=== PATIENT | male | born 1965 | race Caucasian/White ===

== ENCOUNTER → 2023-08-19 15:20 | Outpatient (REF) | payer SELFPAY | LOC: HWRAD 15:20 | PROVIDERS: ATTENDING PHYSICIAN Internal Medicine | DX: E78.00 Pure hypercholesterolemia, unspecified (principal) | CPT/HCPCS: 75571 ==

== ENCOUNTER 2024-04-20 14:21 | Observation (INO) | payer BC, SELFPAY ==
[2024-04-20] VITALS (13 sets, daily range): BP systolic 120–147; BP diastolic 75–103; BMI 27.5; BMI 26.4
--- NOTE | 2024-04-20 11:27 | ED.GENMED ---
History of Present Illness
General
Chief Complaint: Dizziness
Time Seen by Provider: 04/20/24 11:26
History of Present Illness
History of Present Illness:
TIME OF INITIAL ENCOUNTER: 11:30 AM
HPI: The patient awoke just before 6 AM and was able to play Wordl. A few minutes later, the patient had a 'valadez' sensation unlike prior episodes of vertigo. This was associated with paresthesias to the right side of the face. He went to work and
thought he had some trouble with word finding at times and developed paresthesias in the right upper extremity. 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 No nausea, vomiting, or diarrhea. No fevers.
Spoke to PMD and advised to come here.
EXAM:
GENERAL: Well appearing in no distress
HEENT: Moist oral mucosa
CARDIOVASCULAR: No murmurs, normal heart rate, regular rhythm, No chest wall tenderness
PULMONARY: No respiratory distress, breath sounds are clear and equal
ABDOMEN: Soft with no peritoneal signs, no tenderness
NEUROLOGIC: Excellent strength all extremities, no coordination deficits, NIHSS equals 0, GCS 15
PSYCHIATRIC: Appropriate mental status, normal insight and judgement
EXTREMITIES: Nontender, no edema, moves all extremities equally
SKIN: No rash, no lesions
NUMBER AND COMPLEXITY OF PROBLEMS ADDRESSED AT THE ENCOUNTER
� Chronic conditions affecting care: Has had vertigo in the past, asthma, GERD
� Acute Exacerbation and/or Progression of Chronic Illness: This is an acute problem
� Differential Diagnosis includes: TIA/CVA, anxiety, positional vertigo, intracranial mass, dysrhythmia, electrolyte normality
AMOUNT AND/OR COMPLEXITY OF DATA TO BE REVIEWED AND ANALYZED
� I performed an independent evaluation of and my interpretation is:
EKG: Sinus 55, no acute ST abnormality
CT: I personally viewed CT imaging and agree with radiologist interpretation there is no acute abnormality on CT head and CTA of the head neck
X-rays:
Laboratory Studies: CBC and chemistries unremarkable
Other:
� Review of other/old records: The patient had upper endoscopy in May 2022
� Clinical information was obtained by an independent historian: None needed
� Prescriptions/Medications Considered but not given:
� Further testing considered but not performed:
RISK OF COMPLICATIONS AND/OR MORBIDITY OR MORTALITY OF PATIENT MANAGEMENT
� Social determinants of health affecting care: Works as a teacher at [employer]
� Discussion with other providers: Discussed case with Dr. Montenegro at around 12:40 PM�initially recommended patient stay in the hospital for TIA workup. Hospitalist, Dr. Dorman for admission at 1:41 PM
� Escalation of care including admission/observation vs risk of discharge considered: As patient had unilateral paresthesias along with some degree of problems with word finding earlier today, CT and CTA obtained and were both
negative.
ANY OTHER UPDATES:
1 PM: I reassessed patient. The patient feels well and symptoms have nearly resolved. Dr. Montenegro will evaluate in the ED. The patient's NIHSS continues to be 0.
1:20 PM: Patient evaluated by Dr. Montenegro -she recommends he stay in the hospital and patient now agrees to stay
Past History
Past History
ED Past Medical History: GERD
ED Past Surgical History: Orthopedic (Left ACL repair)
Social History
Tobacco: Non-smoker
Personal:
Living: with family
Employment: Employed
Phy Exam
Physical Exam
Physical Exam:
See HPI
Course
Orders/Labs/Results
Orders:
Orders
04/20/24 11:33
CT Head & Neck Angio W/wo IV Urgent
Comment:
Reason For Exam: R paresthesias, word finding prob
CT Head W/o Iv Contrast Urgent
Comment:
Reason For Exam: R paresthesias, resolved aphasia
04/20/24 11:34
Electrocardiogram (*1) Urgent
Reason for Study: TIA/Stroke
EKG- Treatment ONCE
04/20/24 11:40
Complete Blood Count/With Diff Urgent
Comprehensive Metabolic Panel Urgent
Abnormal Lab Results
04/20/24
11:40
RBC 4.63 L 10^6/uL
(4.70-6.10)
MCH 32.6 H pg
(27.0-31.0)
Monocytes % 9.6 H %
(1.7-9.3)
Glucose 100 H mg/dl
(70-99)
04/20/24 11:40
04/20/24 11:40
Vital Signs
Initial and Last Documented VS:
Initial Vital Signs
Temp Pulse Resp BP Pulse Ox
36.5 C 67 18 142/94 100
04/20/24 11:09 04/20/24 11:09 04/20/24 11:09 04/20/24 11:09 04/20/24 11:09
Last Documented Vital Signs
Temp Pulse Resp BP Pulse Ox
36.5 C 67 18 120/75 96
04/20/24 11:09 04/20/24 11:09 04/20/24 11:09 04/20/24 12:00 04/20/24 12:15
*Critical Care Note
Total Time (30-74mins, 75-104mins- exclusive of procedures): Not Applicable
ED Attending Note
-
Portions of this chart may have been created with voice recognition software.� Occasional wrong word or��sound alike� substitutions may have occurred due to the inherent limitations of voice recognition software.
Discharge Plan
Departure
Prescriptions:
No Action
No Current Medications
0
Referrals:
Gege Jacques MD [Family Provider] -
Interventions
Interventions:
*Risk Screen - Suicide Last Done: 04/20/24 11:09
*General Assessment Last Done: 04/20/24 11:22
*Neglect/Abuse Screening Last Done: 04/20/24 11:22
ED- Fall Risk Assessment Last Done: 04/20/24 11:30
*ED COVID-19 Vaccine History Last Done: 04/20/24 11:22
ED- Neurological Assessment Last Done: 04/20/24 11:22
ED Swallowing Screen Last Done: 04/20/24 11:30
Discharge Date and Time
Print Language: YORUBA
[2024-04-20 11:50] LABS: % Basophils 0.8 % (0-2); % Eosinophils 3.5 % (0-6); % Immature Granulocytes 0.2 % (0-0.5); % Lymphocytes 32.1 % (20.5-51.1); % Monocytes 9.6 % (1.7-9.3); % Neutrophils 53.8 % (42.2-75.2); Absolute Basophils 0.1 10^3/uL (0-0.2); Absolute Eosinophils 0.2 10^3/uL (0-0.7); Absolute Monocytes 0.6 10^3/uL (0.1-0.6); Absolute Neutrophils 3.4 10^3/uL (1.4-6.5); Hematocrit 43.4 % (39.0-52.0); Hemoglobin 15.1 g/dL (13.0-18.0); Mean Corp Hgb Conc. 34.8 g/dL (33.0-37.0); Mean Corpuscular Hgb 32.6 pg (27.0-31.0); Mean Corpuscular Volume 93.7 fL (80.0-94.0); Mean Platelet Volume 9.4 fL (7.4-10.4); Nucleated Red Blood Cells % 0 % (-); Platelet Count 232 10^3/uL (130-400); Red Blood Cell Count 4.63 10^6/uL (4.70-6.10); Red Cell Dist. Width 13.2 % (11.5-14.5); White Blood Cell Count 6.2 10^3/uL (4.8-10.8)
[2024-04-20 12:04] LABS: ALT (SGPT) 33 U/L (0-50); AST (SGOT) 34 U/L (17-59); Albumin 4.6 g/dl (3.5-5.0); Alkaline Phosphatase 46 U/L (38-126); Blood Urea Nitrogen 16 mg/dl (9-20); Calcium 9.8 mg/dl (8.4-10.2); Carbon Dioxide 29 mmol/L (22-30); Chloride 101 mmol/L (98-107); Estimated Creatinine Clearance 97 ml/min; Glucose 100 mg/dl (70-99); Potassium 4.6 mmol/L (3.5-5.1); Sodium 139 mmol/L (135-145); Total Bilirubin 0.8 mg/dl (0.2-1.3); Total Protein 7.5 g/dl (6.3-8.2); eGFR > 60.00
--- NOTE | 2024-04-20 13:49 | CON.NEURO ---
Consultation
Order
Date of Consultation: 04/20/24
Requesting Provider: Natasha Dorman MD
Reason for Consult: dizziness
Neurology Consultation Note.
HPI: This is a 58-year-old right-handed man who presented to [facility] on 04/20/2024 for an evaluation of dizziness and sensory symptoms. According to the patient he developed an acute 'gushing 'sensation in the head after he turned
in the bed with associated disequilibrium/ataxia and transient tingling in the right face lasted for about an hour today in the morning. No reports of change in vision, motor deficits, ear pain, tinnitus. He experienced a mild headache on the side
of his head this morning, which is unusual for him as he does not typically get headaches.
Mr. Higginbotham has a history of intermittent dizziness since [id number], with no definitive diagnosis. He has previously consulted a neurologist and explored potential causes such as B12 deficiency and sleep issues. Mr. Higginbotham experienced a mild headache
on the side of his head this morning, which is unusual for him as he does not typically get headaches.
ER VS: 142/94-147/103, 67, afebrile.
EKG:sinus cipriano at 55, QTc Int : 386 ms.
PDMP:none
Labs: gluc 100,
CT head wo contrast
CTA head/neck-no evidence of large vessel occlusion, or arterial dissection.
PMH: asthma, GERD, dyslipidemia, primary congenital glaucoma?
PSH: Lknee arthroscopy,
SH: , works as a typing teacher, non-smoker, social alcohol use.
FH: Father�, had bladder cancer, strokes mother�hypertension.
All: Augmentin, sulfas,
ROS:Constitutional: Negative. Negative for chills, fever and unexpected weight change.
HENT: Negative for ear pain, hearing loss, tinnitus and trouble swallowing.
Eyes: Negative. Negative for photophobia, pain and visual disturbance.
Respiratory: Negative for cough, choking and shortness of breath.
Cardiovascular: Negative for chest pain, palpitations and leg swelling.
Gastrointestinal: Negative for abdominal pain and vomiting.
Endocrine: Negative. Negative for cold intolerance.
Genitourinary: Negative for dysuria, flank pain and urgency.
Musculoskeletal: Negative for back pain, gait problem, neck pain and neck stiffness.
Skin: Negative for rash.
Allergic/Immunologic: Negative. Negative for immunocompromised state.
Neurological: Positive for transient headache and right-sided paresthesias.
Psychiatric/Behavioral: Negative for behavioral problems, confusion and hallucinations.
General: Well developed. In no acute distress.
Cardio: Regular rate and rhythm without murmur. Extremities are without cyanosis or edema.
Neuro:
Mental Status: Alert, oriented to person, place, and date. Normal attention and recall. Good fund of knowledge. Follows complex requests across the midline. Comprehension, naming, and repetition intact. Immediate and delayed recall 3/3.
Cranial Nerves: . Pupils are equally round and reactive to light. EOMs full. Visual chaudhry full to confrontation. No ptosis. No nystagmus. V1-V3 intact to light touch and pinprick bilaterally, symmetric. Face symmetric. Normal hearing AU.
The palate elevated well. SCMs and traps 5/5. Tongue midline. No dysarthria.
Motor: Normal bulk and tone. No pronator or arm drift. Strength 5/5 throughout. No clonus.
Reflexes: 3+ throughout the upper extremities and 3+knees. 2/2 in AJs. Plantar responses flexor bilaterally. Negative Homans bilaterally
Sensory: Normal vibration and JPS.
Coordination: No dysmetria or tremor.
Gait: deferred
Assessment and Plan:
I. TIA
II. Hyperreflexia
III. Elevated blood pressure
-Continue Telemetry monitoring.
-Aspiration precautions.
-Brain MRI wo freddy
-Start ASA 81 mg QD indefinitely.
-Plavix 75 mg QD for 21 days.
-Lipitor 40 mg QHS.
-Please check HbA1C, LDL.
-PT.
-DVT prophylaxis.
I personally reviewed all radiology and labs along with past medical records pertinent to current medical problems. Total time spent in patient care is 60 minutes.
Thank you for allowing us to participate in the care of this patient. We will continue to follow. Please do not hesitate to contact us with any questions or concerns.
Subjective/Objective
Subjective Data
Date of Service: April 20, 2024
Objective Data
Vital Signs
Temp Pulse Resp BP Pulse Ox
36.5 C 67 18 147/103 97
04/20/24 11:09 04/20/24 11:09 04/20/24 11:09 04/20/24 13:30 04/20/24 13:45
Lab Results
04/20/24 11:40
04/20/24 11:40
Sodium 139 mmol/L (135-145) 04/20/24 11:40
Potassium 4.6 mmol/L (3.5-5.1) 04/20/24 11:40
BUN 16 mg/dl (9-20) 04/20/24 11:40
Glucose 100 mg/dl (70-99) H 04/20/24 11:40
Calcium 9.8 mg/dl (8.4-10.2) 04/20/24 11:40
Patient Allergies
amoxicillin [From Augmentin] Allergy (Verified 04/20/24 11:09)
Vomiting
clavulanic acid [From Augmentin] Allergy (Verified 04/20/24 11:09)
Vomiting
sulfabenzamide Allergy (Verified 04/20/24 11:09)
Rash
Medications
-
Home Medications
�Medication �Instructions �Recorded
No Meds [No Current Medications] 08/31/17
Vital Signs and Labs
-
Vital Signs and Labs:
Vital Signs
Temp Pulse Resp BP Pulse Ox
36.7 C 64 16 121/70 97
04/21/24 07:30 04/21/24 07:30 04/21/24 07:30 04/21/24 07:30 04/21/24 07:30
Sodium 139 mmol/L (135-145) 04/20/24 11:40
Potassium 4.6 mmol/L (3.5-5.1) 04/20/24 11:40
BUN 16 mg/dl (9-20) 04/20/24 11:40
Glucose 100 mg/dl (70-99) H 04/20/24 11:40
Calcium 9.8 mg/dl (8.4-10.2) 04/20/24 11:40
LDL Cholesterol, Calc 138 mg/dl 04/20/24 17:18
Medications
-
Medications:
Generic Name Dose Route Start Last Admin
Trade Name Freq PRN Reason Stop Dose Admin
Albuterol 2 puff 04/21/24 08:00 04/21/24 07:55
Albuterol Hfa [90 Mcg/Dose] Inhaler INH Not Given
R DAILY ADARSH
Protocol
Aspirin 81 mg 04/21/24 08:00
Aspirin 81 Mg Chewable Tablet PO 05/19/24 07:59
DAILY ADARSH
Atorvastatin Calcium 80 mg 04/21/24 18:00
Atorvastatin (Lipitor) 80 Mg Tablet PO 05/19/24 17:59
QPM ADARSH
Clopidogrel Bisulfate 75 mg 04/21/24 08:00
Clopidogrel 75 Mg Tablet PO 05/19/24 07:59
DAILY ADARSH
Latanoprost 0 drop 04/20/24 18:00 04/20/24 22:14
Latanoprost 0.005% (Ophthalmic Solution) 2.5 Ml Bottle BOTH EYES 05/18/24 17:59 Not Given
QPM ADARSH
Pantoprazole Sodium 40 mg 04/21/24 08:00
Pantoprazole 40 Mg Delayed Release Tablet PO 05/19/24 07:59
DAILY ADARSH
Sodium Chloride 0 flush 04/20/24 16:00
Sodium Chloride 0.9% (Flush) Syringe IV 05/18/24 15:59
PER PROTOCOL ADARSH
Home Medications
-
Home Medications
albuterol sulfate 90 mcg/actuation aerosol inhaler 2 inh inhalation R DAILY Lung/Breathing Issues 04/20/24
esomeprazole magnesium 20 mg capsule,delayed release (Nexium) 20 mg PO DAILY Gastrointestinal Issue 04/20/24
latanoprost 0.005 % eye drops (Xalatan) 1 drp BOTH EYES QPM Eye Condition 04/20/24
--- NOTE | 2024-04-20 14:09 | HPS.HSE ---
Family Physician
-
Family Physician: Gege Jacques
Chief Complaint
-
dysarthria, headache, parasthesia
History of Present Illness
58-year-old male past medical history of vertigo episodes, GERD, asthma, elevated intraocular pressure, hyperlipidemia, presenting with dizziness. Patient awoke just before 6 AM and was able to play Wordl. Few minutes later he developed a 'valadez'
sensation in his head unlike prior episodes of vertigo. This was associate with paresthesias of the right side of the face and neck. He also had some mild headache on the right side. He went to work and he thought he had trouble with word
finding. He felt like something was off. 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 He denies nausea vomiting or diarrhea. Denies fevers.
He feels back to normal at the current time.
He has had short-lived vertigo episodes in the past thought to be secondary to panic attacks his primary care physician in the past.
He drinks alcohol occasionally. He denies smoking. Denies drugs.
He has a history of elevated blood pressure in his family. His uncle had TIAs.
Medical History
Past Medical History
Past Medical History: Reports Other (vertigo episodes, GERD, asthma, elevated intraocular pressure, hyperlipidemia)
Past Surgical History: Reports None
Social History
Tobacco: Non-smoker
Alcohol: Occasional
Drug: None
Family History
Family History: Not pertinent
Allergies / Home Medications
Allergies reflects when Allergies were last updated in [employer].
Home Medications with original date entered in [employer]
Allergy/Medication List:
Allergies
Allergy/AdvReac Type Severity Reaction Status Date / Time
amoxicillin [From Augmentin] Allergy Vomiting Verified 04/20/24 11:09
clavulanic acid Allergy Vomiting Verified 04/20/24 11:09
[From Augmentin]
sulfabenzamide Allergy Rash Verified 04/20/24 11:09
Home Medications
albuterol sulfate 90 mcg/actuation aerosol inhaler 2 inh inhalation R DAILY 04/20/24
esomeprazole magnesium 20 mg capsule,delayed release (Nexium) 20 mg PO DAILY 04/20/24
latanoprost 0.005 % eye drops (Xalatan) 1 drp BOTH EYES QPM 04/20/24
Review of Systems
-
History Source: Patient
A 12 point ROS was completed and negative except as noted: Yes
Constitutional: Reports No Symptoms
EENT: Reports No Symptoms
Respiratory: Reports No Symptoms
Cardiac: Reports No Symptoms
Abdomen/GI: Reports No Symptoms
: Reports No Symptoms
Musculoskeletal: Reports No Symptoms
Skin: Reports No Symptoms
Neurological: Reports See HPI
Endocrine: Reports No Symptoms
Hematologic/Lymphatic: Reports No Symptoms
Psych: Reports No Symptoms
Physical Exam
Vital Signs
Vital Signs
Temp Pulse Resp BP Pulse Ox
97.7 F 67 18 147/103 97
04/20/24 11:09 04/20/24 11:09 04/20/24 11:09 04/20/24 13:30 04/20/24 13:45
Physical Exam
General: Well Developed, Well Nourished and No Apparent Distress
HEENT: NormoCephalic, Moist mucous membranes and Atraumatic
Respiratory: Clear
Cardiac: S1/S2 and Regular Rhythm; No Murmur or Rub
GI: Soft, Non Tender, Non Distended and Normal Bowel Sounds; No Organomegaly
Rectal: Deferred by Provider
Musculoskeletal: No Clubbing, No Cyanosis and No Edema
Skin: No Rash
Neuro: Nonfocal/grossly intact
Laboratory Results
-
04/20/24 11:40
04/20/24 11:40
Laboratory Results
Total Bilirubin 0.8 mg/dl (0.2-1.3) 04/20/24 11:40
AST 34 U/L (17-59) 04/20/24 11:40
ALT 33 U/L (0-50) 04/20/24 11:40
Alkaline Phosphatase 46 U/L (38-126) 04/20/24 11:40
Data Reviewed
-
Lab Data: Labs Reviewed by me
Old Records: Reviewed
Impression/Plan
-
IMPRESSION:
PLAN:
# Dysarthria/paresthesias of right side concerning for TIA/CVA
-NIH of 0 currently, examination unremarkable
-CTA head and neck no evidence of large vessel occlusion, arterial dissection
-Aspirin 325 mg to be given
-Check MRI brain
-Check A1c and lipid panel
-Likely needs to be on statin/aspirin
-Neurology consulted
History of vertigo
GERD
-Continue esomeprazole
Asthma
-Continue albuterol
Elevated intraocular pressure
-Continue latanoprost
Hyperlipidemia
Full code
DVT prophylaxis�SCDs
Regular diet
[2024-04-20] MEDS: ASPIRIN 325 MG PO (14:24)
[2024-04-20 17:42] LABS: HDL Cholesterol 68 mg/dl; LDL Cholesterol, Calculated 138 mg/dl; Total Cholesterol 217 mg/dl (50-199); Triglyceride 59 mg/dl (10-149); Very Low Density Lipoprotein 11 mg/dl (0-30)
[2024-04-21 03:32] VITALS: BP 132/70
[2024-04-21 07:30] VITALS: BP 121/70
--- NOTE | 2024-04-21 08:38 | W.PN.HOSP.TC ---
Today's Communication/Plan
-
see PN
Assessment / Plan
Assessment / Plan
58yo M with GERD and asthma came with episode of generalized malaise associated with R face paresthesia, that were transient. Managed for TIA
A/P:
#TIA
#HLD
Neurology: ASA, Plavix, Lipior
Trelemetry: no afib. episodes of bradycardia to 49bpm asymptomatic
Neurochecks
MRI brain: no evidence of intracranial abnormality
CTA: no LVO, no carotid stenosis
LDL 138
HgbA1c and TSH pending
Echo with bubble study
#Elevated BP on admission
not meeting criteria for HTN
Outpatient f/u by PCP
DVT ppx SCDs
Full code
I have spent at least 59min reviewing chart, test results, communication with consultants and direct patient care
Anticipated Discharge: Within 24 hours
Subjective/Interval History
-
Date of Service: April 21, 2024
Objective Data
-
Labs:
Laboratory Results
04/21/24
06:00
WBC Pending
Hgb Pending
Hct Pending
Plt Count Pending
Sodium Pending
Potassium Pending
Chloride Pending
Carbon Dioxide Pending
BUN Pending
Creatinine Pending
Glucose Pending
Calcium Pending
Vital Signs:
Vital Signs
Temp Pulse Resp BP Pulse Ox
98.0 F 64 16 121/70 97
04/21/24 07:30 04/21/24 07:30 04/21/24 07:30 04/21/24 07:30 04/21/24 07:30
I&O
04/20/24 04/21/24 04/22/24
06:59 06:59 06:59
Intake Total 720 / 720
Balance 720 / 720
Review of Systems
-
History Source: Patient
All other systems: Reviewed and negative
Physical Exam
-
General: No Apparent Distress
HEENT: Normocephalic
Respiratory: Clear to Auscultation
Cardiac: Regular Rhythm; Negative Murmur
Musculoskeletal: No Clubbing, No Cyanosis and No Edema
Neuro: Awake, Alert, Oriented, AO x 3 and No Motor Deficits
Psych: Calm
[2024-04-21 09:05] LABS: Glycohemoglobin (HgbA1c) 5.9 % (4.0-5.6)
[2024-04-21 10:07] LABS: % Basophils 0.5 % (0-2); % Eosinophils 4.5 % (0-6); % Immature Granulocytes 0.5 % (0-0.5); % Lymphocytes 29.3 % (20.5-51.1); % Monocytes 8.8 % (1.7-9.3); % Neutrophils 56.4 % (42.2-75.2); Absolute Eosinophils 0.3 10^3/uL (0-0.7); Absolute Lymphocytes 1.8 10^3/uL (1.2-3.4); Absolute Monocytes 0.6 10^3/uL (0.1-0.6); Absolute Neutrophils 3.5 10^3/uL (1.4-6.5); Hematocrit 44.5 % (39.0-52.0); Hemoglobin 15.2 g/dL (13.0-18.0); Mean Corp Hgb Conc. 34.2 g/dL (33.0-37.0); Mean Corpuscular Hgb 32.4 pg (27.0-31.0); Mean Corpuscular Volume 94.9 fL (80.0-94.0); Mean Platelet Volume 9.3 fL (7.4-10.4); Nucleated Red Blood Cells % 0 % (-); Platelet Count 228 10^3/uL (130-400); Red Blood Cell Count 4.69 10^6/uL (4.70-6.10); Red Cell Dist. Width 13.2 % (11.5-14.5); White Blood Cell Count 6.3 10^3/uL (4.8-10.8)
[2024-04-21] MEDS: LOW STRENGTH ASPIRIN 81 MG PO (10:10)
[2024-04-21 10:51] LABS: Blood Urea Nitrogen 16 mg/dl (9-20); Calcium 9.6 mg/dl (8.4-10.2); Carbon Dioxide 27 mmol/L (22-30); Chloride 103 mmol/L (98-107); Estimated Creatinine Clearance 97 ml/min; Glucose 101 mg/dl (70-99); Potassium 4.8 mmol/L (3.5-5.1); Sodium 138 mmol/L (135-145); eGFR > 60.00
[2024-04-21 11:57] VITALS: BP 129/85
[2024-04-21 12:21] LABS: TSH Reflex To Free T4 2.23 uIU/ml (0.47-4.68)
--- NOTE | 2024-04-21 12:34 | CM ---
Addendum entered by Amena Wray 04/21/24 14:14:
Patient dressed and ready to leave hospital. Patient stated that he was not comfortable signing the OBS form and he felt that he should have been told prior to being admitted to . Patient leaving hospital at this time. CM will follow for discharge
planning needs.
Original Note:
Patient seen at bedside, Patient stated that he lives with his family in a 2 story home with no DME or needs at home. Patient PCP is Dr. Jacques and he uses the [facility] on [facility] [address]. CM reviewed OBS status and patient indicated that he
wanted to review the form prior to signing it when he returned from the test. Patient indicated that he was unaware that he was OBS and was anticipating signing AMA as he felt better and wanted to go home. CM will continue to follow for discharge
planning needs.
PLan; home with no needs anticipated.
--- NOTE | 2024-04-21 12:43 | W.PN.NEURO.1 ---
Today's Communication / Plan
-
.
Subjective/Objective
Subjective Data
Date of Service: April 21, 2024
Neurology follow-up note
Mr. Higginbotham reports no recurrent sensory deficits.
Brain MRI wo freddy showed stable inferior left frontal lobe T2/FLAIR abnormality, stable since 2015, multiple subcortical hyperdensities and a mild volume loss.
LDL 138, Hb A1C 5.9
CTA head/neck-no evidence of large vessel occlusion, or arterial dissection.
PMH: asthma, GERD, dyslipidemia, primary congenital glaucoma?
PSH: L knee arthroscopy,
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
FH: Father�, had bladder cancer, strokes mother�hypertension.
All: Augmentin, sulfas,
ROS:Constitutional: Negative. Negative for chills, fever and unexpected weight change.
HENT: Negative for ear pain, hearing loss, tinnitus and trouble swallowing.
Eyes: Negative. Negative for photophobia, pain and visual disturbance.
Respiratory: Negative for cough, choking and shortness of breath.
Cardiovascular: Negative for chest pain, palpitations and leg swelling.
Gastrointestinal: Negative for abdominal pain and vomiting.
Endocrine: Negative. Negative for cold intolerance.
Genitourinary: Negative for dysuria, flank pain and urgency.
Musculoskeletal: Negative for back pain, gait problem, neck pain and neck stiffness.
Skin: Negative for rash.
Allergic/Immunologic: Negative. Negative for immunocompromised state.
Neurological: Positive for transient headache and right-sided paresthesias.
Psychiatric/Behavioral: Negative for behavioral problems, confusion and hallucinations.
General: Well developed. In no acute distress.
Cardio: Regular rate and rhythm without murmur. Extremities are without cyanosis or edema.
Neuro:
Mental Status: Alert, oriented to person, place, and date. Normal attention and recall. Good fund of knowledge. Follows complex requests across the midline. Comprehension, naming, and repetition intact. Immediate and delayed recall 3/3.
Cranial Nerves: . Pupils are equally round and reactive to light. EOMs full. Visual chaudhry full to confrontation. No ptosis. No nystagmus. V1-V3 intact to light touch and pinprick bilaterally, symmetric. Face symmetric. Normal hearing AU.
The palate elevated well. SCMs and traps 5/5. Tongue midline. No dysarthria.
Motor: Normal bulk and tone. No pronator or arm drift. Strength 5/5 throughout. No clonus.
Reflexes: 3+ throughout the upper extremities and 3+knees. 2/2 in AJs. Plantar responses flexor bilaterally. Negative Homans bilaterally
Sensory: Normal vibration and JPS.
Coordination: No dysmetria or tremor.
Gait: deferred
Assessment and Plan:
I. TIA
II.DLP
III. Cerebrovascular disease
-Continue Telemetry monitoring.
-Brain MRI with freddy
-ASA 81 mg QD indefinitely, Plavix 75 mg QD for 21 days.
-Lipitor 40 mg QHS.
-MS mimickers blood work
-DVT prophylaxis.
I personally reviewed all radiology and labs along with past medical records pertinent to current medical problems. Total time spent in patient care is 40 minutes.
Thank you for allowing us to participate in the care of this patient. We will continue to follow. Please do not hesitate to contact us with any questions or concerns.
Objective Data
Vital Signs
Temp Pulse Resp BP Pulse Ox
36.7 C 64 16 121/70 97
04/21/24 07:30 04/21/24 07:30 04/21/24 07:30 04/21/24 07:30 04/21/24 07:30
Lab Results
04/21/24 09:39
04/21/24 09:39
Sodium 138 mmol/L (135-145) 04/21/24 09:39
Potassium 4.8 mmol/L (3.5-5.1) 04/21/24 09:39
BUN 16 mg/dl (9-20) 04/21/24 09:39
Glucose 101 mg/dl (70-99) H 04/21/24 09:39
Calcium 9.6 mg/dl (8.4-10.2) 04/21/24 09:39
LDL Cholesterol, Calc 138 mg/dl 04/20/24 17:18
Patient Allergies
amoxicillin [From Augmentin] Allergy (Verified 04/20/24 11:09)
Vomiting
clavulanic acid [From Augmentin] Allergy (Verified 04/20/24 11:09)
Vomiting
sulfabenzamide Allergy (Verified 04/20/24 11:09)
Rash
Vital Signs and Labs
-
Vital Signs and Labs:
Vital Signs
Temp Pulse Resp BP Pulse Ox
36.7 C 64 16 121/70 97
04/21/24 07:30 04/21/24 07:30 04/21/24 07:30 04/21/24 07:30 04/21/24 07:30
Lab Results
04/21/24 09:39
04/21/24 09:39
Sodium 138 mmol/L (135-145) 04/21/24 09:39
Potassium 4.8 mmol/L (3.5-5.1) 04/21/24 09:39
BUN 16 mg/dl (9-20) 04/21/24 09:39
Glucose 101 mg/dl (70-99) H 04/21/24 09:39
Calcium 9.6 mg/dl (8.4-10.2) 04/21/24 09:39
LDL Cholesterol, Calc 138 mg/dl 04/20/24 17:18
Medications
-
Medications:
Generic Name Dose Route Start Last Admin
Trade Name Freq PRN Reason Stop Dose Admin
Albuterol 2 puff 04/21/24 08:00 04/21/24 07:55
Albuterol Hfa [90 Mcg/Dose] Inhaler INH Not Given
R DAILY ADARSH
Protocol
Aspirin 81 mg 04/21/24 08:00 04/21/24 10:10
Aspirin 81 Mg Chewable Tablet PO 05/19/24 07:59 81 mg
DAILY ADARSH Administration
Atorvastatin Calcium 80 mg 04/21/24 18:00
Atorvastatin (Lipitor) 80 Mg Tablet PO 05/19/24 17:59
QPM ADARSH
Clopidogrel Bisulfate 75 mg 04/21/24 08:00
Clopidogrel 75 Mg Tablet PO 05/19/24 07:59
DAILY ADARSH
Latanoprost 0 drop 04/20/24 18:00 04/20/24 22:14
Latanoprost 0.005% (Ophthalmic Solution) 2.5 Ml Bottle BOTH EYES 05/18/24 17:59 Not Given
QPM ADARSH
Pantoprazole Sodium 40 mg 04/21/24 08:00
Pantoprazole 40 Mg Delayed Release Tablet PO 05/19/24 07:59
DAILY ADARSH
Sodium Chloride 0 flush 04/20/24 16:00
Sodium Chloride 0.9% (Flush) Syringe IV 05/18/24 15:59
PER PROTOCOL ADARSH
Home Medications
-
Home Medications
albuterol sulfate 90 mcg/actuation aerosol inhaler 2 inh inhalation R DAILY Lung/Breathing Issues 04/20/24
esomeprazole magnesium 20 mg capsule,delayed release (Nexium) 20 mg PO DAILY Gastrointestinal Issue 04/20/24
latanoprost 0.005 % eye drops (Xalatan) 1 drp BOTH EYES QPM Eye Condition 04/20/24
--- NOTE | 2024-04-21 13:28 | W.DCSUMMARY ---
Discharge Summary
Discharge Data
Date of Admission: 04/20/24
Date of Discharge: 04/21/24
-
Pending Results: Yes
Additional Pending Results:
MS mimics workup
Echo results
Hospital Course
58yo M with GERD and asthma came with episode of generalized malaise associated with R face paresthesia, that were transient. Managed for TIA. MRI brain: no evidence of acute intracranial abnormality, however multiple subcortical hypodencities.
Telemetry with asymptomatic bradycardia. No carotid stenosis on CTA neck. Neurology started workup for MS mimiketeresa. Patient requested to leave the hospital, in spite offered inpatient workup. Recommend to have MRI brain with contrast that agreed to
be done as outpatient. Referral to neurology provided and neurologist asked for close follow up.
Medically stable for d/c, asymptomatic at the time of D/C. Echo done and result will be followed with patient - if needed will have cardiology follow up
I have spent at least 59min reviewing chart, test results, communication with consultants and direct patient care
Patient was managed for:
#TIA
#HLD
#Elevated BP on admission
Discharge Plan
-
Patient Disposition: Home (Routine Discharge)
Discharge Diagnosis/Procedures: TIA
Diet: Low Cholesterol
Activity: As tolerated
Driving Restrictions: As prior to admission
Referrals:
Taryn Montenegro MD [Active] - in one to two weeks
Gege Jacques MD [Family Provider] -
Additional Discharge Medication Instructions: Switch to Famotidine from Esomeprazole while taking Plavix. Can switch back afterwards
Cont ASA, Lipitor indefinitely
Stop Plavix after 21 days
Prescriptions:
New
atorvastatin 80 mg Tablet
80 mg PO QPM Qty: 30 0RF
aspirin 81 mg Tablet,Chewable
81 mg PO DAILY Qty: 30 0RF
clopidogrel 75 mg Tablet
75 mg PO DAILY Qty: 21 0RF
famotidine 20 mg tablet
20 mg PO BID Qty: 60 0RF
Continued
latanoprost [Xalatan] 0.005 % Drops
1 drp BOTH EYES QPM
Rx Instructions:
brand name only
albuterol sulfate 90 mcg/actuation Hfa Aerosol Inhaler
2 inh INHALATION R DAILY
Discontinued
esomeprazole magnesium [Nexium] 20 mg Capsule,Delayed Release(Dr/Ec)
20 mg PO DAILY
Discharge Orders:
Discharge Patient (As Directed); Ordered 04/21/24
Ordered By: Kishan Clark
Discharge Date and Time
Print Language: [place]
[2024-04-21 15:03] LABS: C-Reactive Protein < 5.00 mg/L (0.0-10.00)
[2024-04-21 15:17] LABS: Erythrocyte Sed Rate 16 mm/hour (0-20)
[2024-04-21 15:42] LABS: Vitamin B12 648 pg/ml (239-931)
== END 2024-04-21 14:27 | disposition home or self-care (01) ==
LOC: 4 EAST ACU 14:21
PROVIDERS: ADMITTING PHYSICIAN Hospitalist; ATTENDING PHYSICIAN Internal Medicine; CONSULT PHYSICIAN Psychiatry & Neurology Neurology; EMERGENCY PHYSICIAN Emergency Medicine; FAMILY PHYSICIAN Internal Medicine
DX: G45.9 Transient cerebral ischemic attack, unspecified (principal); R42 Dizziness and giddiness; R29.2 Abnormal reflex; R51.9 Headache, unspecified; R03.0 Elevated blood-pressure reading, without diagnosis of hypertension; R47.1 Dysarthria and anarthria; R00.1 Bradycardia, unspecified; R53.81 Other malaise; R20.2 Paresthesia of skin; J45.909 Unspecified asthma, uncomplicated; K21.9 Gastro-esophageal reflux disease without esophagitis; Z82.49 Family history of ischemic heart disease and other diseases of the circulatory system; E78.5 Hyperlipidemia, unspecified; Z88.0 Allergy status to penicillin; Z88.1 Allergy status to other antibiotic agents; Z82.3 Family history of stroke; Z88.2 Allergy status to sulfonamides
CPT/HCPCS: 70450; 70496; 70498; 70551; 80048; 80053; 80061; 82164; 82607; 83036; 84443; 85025; 85652; 86140; 86618; 93005; 93306; 99285; Q9967

== ENCOUNTER → 2024-08-30 16:38 | Outpatient (REF) | payer BC, SELFPAY | LOC: RAD 16:38 | PROVIDERS: ATTENDING PHYSICIAN Nurse Practitioner Family | DX: R20.2 Paresthesia of skin (principal); M25.561 Pain in right knee | CPT/HCPCS: 72110; 73564 ==

== ENCOUNTER → 2024-10-30 12:47 | Outpatient (REF) | payer BC, SELFPAY | LOC: RAD 12:47 | PROVIDERS: ATTENDING PHYSICIAN Surgery Vascular Surgery; FAMILY PHYSICIAN Internal Medicine | DX: I72.2 Aneurysm of renal artery (principal) | CPT/HCPCS: 74174; Q9967 ==

== ENCOUNTER 2025-02-07 06:19 | Day surgery (SDC) | payer BC, SELFPAY | END 2025-02-07 12:12 | disposition home or self-care (01) | LOC: GI 06:19 | PROVIDERS: ATTENDING PHYSICIAN Internal Medicine | DX: Z12.11 Encounter for screening for malignant neoplasm of colon (principal); Z80.0 Family history of malignant neoplasm of digestive organs; K57.30 Diverticulosis of large intestine without perforation or abscess without bleeding; K22.70 Barrett's esophagus without dysplasia; K44.9 Diaphragmatic hernia without obstruction or gangrene; K29.71 Gastritis, unspecified, with bleeding | CPT/HCPCS: 43239; G0105; 88305; 88342 ==